=== PATIENT | male | born 1965 | race Caucasian/White ===

== ENCOUNTER 2017-04-03 20:26 | Emergency (ER) | payer BC, MEDICAID ==
[~2017-04-03] VITALS: Ht 177.8 cm; Wt 77.1 kg
--- NOTE | 2017-04-03 21:56 | NUR ---
PT RECEIVED FROM HOME VIA GF WITH MULTIPLE COMPLAINTS INCLUDING ENFLAMED SPIDER BITE, SOB, ANXIETY AND "WOKE UP NEXT TO THE HEATER WHICH IS WEIRD". NO SOB NOTED WITH ADEQUATE CHEST RISE/FALL. NO PAIN AT THIS MOMENT. VSS NAD A/OX4. WILL CONTINUE TO MONITOR FOR ANY CHANGES
--- NOTE | 2017-04-03 22:00 | NUR ---
ER MD HURT AT BEDSIDE FOR EVAL
[2017-04-03] MEDS ORDERED: HYDROCODONE/APAP 5/325MG 1 EACH TABLET ONE (22:22)
[2017-04-03] MEDS ORDERED: CEFTRIAXONE 1 G VIAL ONE (22:22)
[2017-04-03] MEDS ORDERED: LIDOCAINE /MPF 1% VIAL 5 ML VIAL ONE (22:22)
[2017-04-03] MEDS ORDERED: CEFTRIAXONE 1 G VIAL IM ONE (22:30)
[2017-04-03] MEDS ORDERED: HYDROCODONE/APAP 5/325MG 1 EACH TABLET PO ONE (22:30)
[2017-04-03 22:31] VITALS: BP 133/70
== END 2017-04-03 22:32 | disposition home or self-care (01) ==
LOC: ER 20:34
DX: R42 Dizziness and giddiness (principal); Z88.8 Allergy status to other drugs, medicaments and biological substances
CPT/HCPCS: 96372; 99283; A4606; J0696; J3490; Z7610

== ENCOUNTER 2017-06-26 14:15 | Emergency (ER) | payer BC, MEDICAID ==
[~2017-06-26] VITALS: Ht 177.8 cm; Wt 83.9 kg
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
[2017-06-26] MEDS ORDERED: ONDANSETRON HCL/PF 4 MG/2 ML VIAL ONE (14:53)
[2017-06-26] MEDS ORDERED: KETOROLAC TROMETHAMINE INJ 30 MG/ML VIAL ONE (14:53)
[2017-06-26] MEDS ORDERED: FENTANYL PF 100MCG/2ML AMPUL ONE (14:54)
[2017-06-26] MEDS ORDERED: ONDANSETRON HCL/PF 4 MG/2 ML VIAL IVP ONE (15:00)
[2017-06-26] MEDS ORDERED: IV NS 0.9% 500 ML BAG IV ONE (15:00)
[2017-06-26] MEDS ORDERED: KETOROLAC TROMETHAMINE INJ 30 MG/ML VIAL IV ONE (15:00)
[2017-06-26] MEDS ORDERED: FENTANYL PF 100MCG/2ML AMPUL IV ONE ×2 (15:00→15:30)
[2017-06-26 15:15] LABS: APPEARANCE,URINE Clear (CLEAR); BILIRUBIN,URINE Negative (NEGATIVE); BLOOD, URINE Negative Ery/uL (NEGATIVE); COLOR,URINE Yellow (YELLOW); KETONES,URINE Negative (NEGATIVE); LEUKOCYTE ESTERASE ,URINE Negative (NEGATIVE); NITRITE, URINE Negative (NEGATIVE); PH,URINE 6.5 (5.0-8.0); PROTEIN,URINE Negative (NEGATIVE); UGLUCOSE Negative (NEGATIVE); UROBILINOGEN,URINE 0.2 EU/dL (0.2)
--- NOTE | 2017-06-26 16:15 | NUR ---
CALLED PT'S FATHER JESSY AND LEFT A VOICEMAIL. PT STATES HIS FATHER, NAD, WILL BE HIS RIDE BACK HOME. [phone]
--- NOTE | 2017-06-26 16:26 | NUR ---
Patient discharged to home in stable condition. Written and verbal after care instructions given. Patient verbalizes understanding of instruction.IV removed. Catheter intact and site benign. Pressure and 4x4 applied to site. No bleeding noted. VSS. PT wheelchaired outside to waiting room. Pt states "my dad will pick me up from the waiting room."
[2017-06-26 16:27] VITALS: BP 145/92
== END 2017-06-26 16:28 | disposition home or self-care (01) ==
LOC: ER 14:16
DX: M54.41 Lumbago with sciatica, right side (principal); F10.10 Alcohol abuse, uncomplicated; F17.200 Nicotine dependence, unspecified, uncomplicated; Z88.8 Allergy status to other drugs, medicaments and biological substances; V49.49XA Driver injured in collision with other motor vehicles in traffic accident, initial encounter; Y93.89 Activity, other specified; Y92.410 Unspecified street and highway as the place of occurrence of the external cause; Y99.8 Other external cause status
CPT/HCPCS: 72131-TC; 81000-TC; A4606; J1885; J2405; J3010; J7040; Z7610

== ENCOUNTER 2017-07-02 07:58 | Inpatient (IN) | payer MEDICAID ==
[~2017-07-02] VITALS: Ht 177.8 cm; Wt 73.9 kg
[2017-07-02] VITALS (24 sets, daily range): BP systolic 103–166; BP diastolic 63–113
--- NOTE | 2017-07-02 08:08 | NUR ---
Nitza Pittman 19 IVSL POA.
[2017-07-02] MEDS ORDERED: ONDANSETRON HCL/PF 4 MG/2 ML VIAL ONE (08:18)
[2017-07-02 08:28] LABS: BASOPHILS % (AUTO) 0.4 % (0.0-2.0); EOSINOPHILS % (AUTO) 0.3 % (0.0-6.0); HEMATOCRIT 40 % (39-51); HEMOGLOBIN 13.2 g/dL (13.5-17.5); LYMPHOCYTES # (AUTO) 1.2 /CMM (0.8-4.8); LYMPHOCYTES % (AUTO) 9.8 % (20.0-44.0); MEAN CORPUSCULAR HGB CONC 33 g/dl (31.0-36.0); MEAN CORPUSCULAR VOLUME 89 fL (80-96); MONOCYTES # (AUTO) 0.8 /CMM (0.1-1.30); MONOCYTES % (AUTO) 6.7 % (2.0-12.0); NEUTROPHILS # (AUTO) 10.4 /CMM (1.8-8.9); NEUTROPHILS % (AUTO) 82.8 % (43.0-81.0); PLATELET COUNT (AUTO) 357 /CMM (150-450); RDW COEFFICIENT OF VARIATION 14.1 (11.5-15.0); RED BLOOD CELL COUNT(AUTO) 4.47 MIL/uL (4.5-6.0); WHITE BLOOD COUNT (AUTO) 12.6 K/uL (4.3-11.0)
[2017-07-02] MEDS ORDERED: ONDANSETRON HCL/PF 4 MG/2 ML VIAL IVP ONE (08:30)
[2017-07-02] MEDS ORDERED: IV NS 0.9% 1,000 ML BAG IV ONE (08:30)
--- NOTE | 2017-07-02 08:35 | NUR ---
URINE SAMPLE COLLECTED AND SEND TO LAB
[2017-07-02 08:43] LABS: APPEARANCE,URINE CLEAR (CLEAR); BILIRUBIN,URINE NEGATIVE (NEGATIVE); BLOOD, URINE NEGATIVE Ery/uL (NEGATIVE); COLOR,URINE YELLOW (YELLOW); KETONES,URINE TRACE (NEGATIVE); LEUKOCYTE ESTERASE ,URINE NEGATIVE (NEGATIVE); NITRITE, URINE NEGATIVE (NEGATIVE); PROTEIN,URINE NEGATIVE (NEGATIVE); UGLUCOSE NEGATIVE (NEGATIVE); UROBILINOGEN,URINE 0.2 EU/dL (0.2)
[2017-07-02 08:53] LABS: CALCIUM, SERUM 9.5 mg/dL (8.5-10.1); CARBON DIOXIDE 29 mmol/L (21-32); CHLORIDE 99 mmol/L (98-107); GLUCOSE 113 mg/dL (74-106); POTASSIUM 3.6 mmol/L (3.5-5.1); SODIUM SERUM 140 mmol/L (136-145); UREA NITROGEN, BLOOD 12 mg/dL (7-18)
[2017-07-02 08:56] LABS: ALANINE AMINOTRANSFERASE 41 U/L (12-78); ALBUMIN 3.2 g/dL (3.4-5.0); ALCOHOL, BLOOD < 3 mg/dL (0-0); ALKALINE PHOSPHATASE 97 U/L (46-116); ASPARTATE AMINOTRANSFERASE 48 U/L (15-37); BILIRUBIN,TOTAL 0.3 mg/dL (0.2-1.0); TOTAL PROTEIN, SERUM 8.8 g/dL (6.4-8.2)
[2017-07-02 08:59] LABS: SALICYLATE 1.8 mg/dL (2.8-20.0)
[2017-07-02 09:00] LABS: ACETAMINOPHEN 0 ug/ml (10-30)
[2017-07-02 09:08] LABS: BILIRUBIN,DIRECT 0.1 mg/dL (0.0-0.2)
[2017-07-02 09:16] LABS: BACTERIA,URINE Few /HPF (None Seen); RBC,URINE 0-2 /HPF (0-2); SQUAMOUS EPITHELIAL CELL,UR Rare /HPF (None Seen); WBC,URINE 0-2 /HPF (0-3)
--- NOTE | 2017-07-02 09:55 | NUR ---
Patient is resting comfortably in bed with eyes closed. Easily aroused. VSS
--- NOTE | 2017-07-02 10:39 | NUR ---
REPORT GIVEN TO ICU NURSE 260
[2017-07-02] MEDS ORDERED: ZOLPIDEM TARTRATE 5 MG TABLET PO PRN (11:00)
[2017-07-02] MEDS ORDERED: ONDANSETRON HCL/PF 4 MG/2 ML VIAL IVP PRN (11:00)
[2017-07-02] MEDS ORDERED: MAG HYDROX/AL HYDROX/SIMETH 30 ML UDC PO PRN (11:00)
[2017-07-02] MEDS ORDERED: hydrALAZINE HCL IV 20 MG VIAL IV PRN (11:00)
[2017-07-02] MEDS ORDERED: MAGNESIUM HYDROXIDE 30 ML UDC PO PRN (11:00)
[2017-07-02] MEDS ORDERED: Z GUARD REMEDY 2 OZ OINT TP PRN (11:00)
--- NOTE | 2017-07-02 11:11 | NUR ---
INITIAL SPEECH THERAPIST EARLY INTERVENTION NOTE RCVD PT AWAKE AND ALERT TO SELF, UNABLE TO STOP CRYING/SCREAMING, OR FOLLOW COMMANDS AT THIS TIME ST ON TELE. BILATERAL SOFT WRIST RESTRAINTS IN PLACE. TOLERATING O2 VIA NC. KUMARI INSERTED ORDERED. IV SITES C/D/I/PATENT. NO S/O INFILTRATION/PHLEBITIS OBSERVED UPON FLUSHING. IVF STARTED ORDERED. WILL CONTINUE TO MONITOR PT FOR SAFETY AND COMFORT. CALL LIGHT WITHIN REACH. BED IN LOW AND LOCKED POSITION.
[2017-07-02] MEDS: IV NS 0.9% 1,000 ML IV PRN ×2 (11:51→20:01)
[2017-07-02] MEDS: ACETAMINOPHEN 325 MG TABLET PO PRN ×2 (11:53→18:11)
[2017-07-02] MEDS: ENOXAPARIN SODIUM 40 MG/0.4 ML DISP.SYRIN SQ SCH (11:53)
--- NOTE | 2017-07-02 12:12 | NUR ---
INTERNAL MEDICINE DOCTOR NOTE PT APPEARS MORE AWAKE AT THIS TIME. RE-ORIENTED TO PLACE, TIME, SITUATION. PT DENIES THAT HE TRY TO KILL HIMSELF. DR. ANGULO AT BEDSIDE.
[2017-07-02] MEDS ORDERED: LORAZEPAM INJ 2 MG/ML VIAL IV PRN (12:30)
--- NOTE | 2017-07-02 18:53 | NUR ---
MAINTAINER OPERATOR NOTE PT AWAKE AND ALERT, SHOWING NO S/O DISTRESS. VITAL SIGNS STABLE, SR ON TELE. FAMILY AT BEDSIDE. IV SITES C/D/I/PATENT. IVF INFUSING. PT'S CARE WILL BE ENDORSED TO PRESCRIPTION EYEGLASS MAKER RN FOR CONTINUITY OF CARE. CALL LIGHT WITHIN REACH. BED IN LOW AND LOCKED POSITION.
--- NOTE | 2017-07-02 19:30 | NUR ---
DIESEL LOCOMOTIVE CRANE OPERATOR INITIAL NOTES RECEIVED PATIENT IN BED, ASLEEP, EASILY AROUSABLE TO NAME, ALERT AND ORIENTED X3, BUT LETHARGIC AT THIS TIME. FAMILY MEMBERS AT BEDSIDE. BREATHING EVEN AND NONLABORED, DENIES NEED FOR O2, ON STANDBY. SR ON TELEMETRY MONITORING HR 80s AT THIS TIME. IVF INFUSING ON RIGHT WRIST #18G, PATENT AND INTACT, SITE FLUSHED WITH NS. RIGHT AC #16 G ALSO FLUSHED WITH NS, BOTH SITES FREE FROM ANY S/S OF INFILTRATION OR PHLEBITIS. KUMARI CATHETER IN PLACE, DRAINING CLEAR YELLOW URINE VIA GRAVITY. PLAN OF CARE DISCUSSED WITH THE PATIENT AND FAMILY MEMBERS, WHO VERBALIZE UNDERSTANDING AT THIS TIME. CALL LIGHT LEFT WITHIN EASY REACH, BED IN LOWEST AND LOCKED POSITION. SAFETY MEASURES IN PLACE. WILL CONTINUE TO CLOSELY MONITOR
--- NOTE | 2017-07-02 21:00 | NUR ---
RN NOTES PATIENT NOTED TO WAKE UP, DISORIENTED, DEMANDING FOR BREAKFAST. PATIENT REORIENTED TO TIME AND SITUATION. OFFERED SNACK TO THE PATIENT, WHO GLADLY ACCEPTED. WILL CONTINUE TO CLOSELY MONITOR
[2017-07-03] VITALS (15 sets, daily range): BP systolic 119–156; BP diastolic 79–96
[2017-07-03] MEDS: ACETAMINOPHEN 325 MG TABLET PO PRN ×2 (01:11→14:39)
--- NOTE | 2017-07-03 02:00 | NUR ---
TANK TENDER NOTES PATIENT NOTED TO ASK "WHAT DO YOU KNOW ABOUT PHYSICIAN ASSISTED SUICIDE?" BEFORE BEING ABLE TO ANSWER, PATIENT INTERJECTED AND STRONGLY DENIED HAVING SUICIDAL THOUGHTS OR INTENTION TO HARM HIMSELF OR OTHERS, THEN STATING "NEVER MIND." PATIENT WAS ENCOURAGED TO VERBALIZE THOUGHTS AND FEELINGS, BUT REFUSED TO ANSWER, STATING "NEVER MIND, JUST LET ME SLEEP NOW." WILL CONTINUE TO CLOSELY MONITOR
[2017-07-03 05:23] LABS: BASOPHILS % (AUTO) 0.5 % (0.0-2.0); EOSINOPHILS % (AUTO) 1.3 % (0.0-6.0); HEMATOCRIT 34 % (39-51); HEMOGLOBIN 11.6 g/dL (13.5-17.5); LYMPHOCYTES # (AUTO) 1.2 /CMM (0.8-4.8); LYMPHOCYTES % (AUTO) 18.1 % (20.0-44.0); MEAN CORPUSCULAR HGB CONC 34 g/dl (31.0-36.0); MEAN CORPUSCULAR VOLUME 88 fL (80-96); MONOCYTES # (AUTO) 0.5 /CMM (0.1-1.30); MONOCYTES % (AUTO) 7.8 % (2.0-12.0); NEUTROPHILS # (AUTO) 4.7 /CMM (1.8-8.9); NEUTROPHILS % (AUTO) 72.3 % (43.0-81.0); PLATELET COUNT (AUTO) 317 /CMM (150-450); RDW COEFFICIENT OF VARIATION 14.2 (11.5-15.0); WHITE BLOOD COUNT (AUTO) 6.6 K/uL (4.3-11.0)
[2017-07-03 05:48] LABS: CALCIUM, SERUM 8.8 mg/dL (8.5-10.1); CREATININE 0.7 mg/dL (0.6-1.3); MAGNESIUM 1.6 mg/dL (1.8-2.4); PHOSPHORUS 3.9 mg/dL (2.5-4.9); POTASSIUM 3.9 mmol/L (3.5-5.1)
[2017-07-03] MEDS: IV NS 0.9% 1,000 ML IV PRN (06:17)
--- NOTE | 2017-07-03 07:00 | NUR ---
FAUCETS ASSEMBLER CLOSING NOTES PATIENT NOW SLEEPING IN BED, NOTED TO HAVE EPISODES OF UNCOOPERATIVENESS WITH NEEDY BEHAVIOR, ATTEMPTING TO MANIPULATE STAFF THROUGHOUT SHIFT, REQUIRING FREQUENT REORIENTATION TO SITUATION, TIME, AND REALITY. WILL ENDORSE THE PATIENT TO THE AM SHIFT NURSE FOR CONTINUITY OF CARE
[2017-07-03] MEDS ORDERED: PANTOPRAZOLE 40 MG TABLET.DR PO SCH (07:30)
--- NOTE | 2017-07-03 07:53 | NUR ---
INITIAL COMMERCIAL DECORATOR NOTE RCVD PT SLEEPING,EASILY AROUSED TO LIGHT TOUCH. SR ON TELE. ON NC TOLERATING WELL. O2 TURNED OFF WILL CONTINUE TO MONITOR. KUMARI TO GRAVITY DRAINING CLEAR, YELLOW URINE. IV SITES C/D/I/PATENT. NO S/O INFILTRATION/PHLEBITIS OBSERVED IVF INFUSING. WILL CONTINUE TO MONITOR PT FOR SAFETY AND COMFORT. CALL LIGHT WITHIN REACH. BED IN LOW AND LOCKED POSITION.
[2017-07-03] MEDS: ENOXAPARIN SODIUM 40 MG/0.4 ML DISP.SYRIN SQ SCH (08:10)
[2017-07-03] MEDS: Magnesium 1GM/D5W 100ML PREMIX 100 ML IV SCH ×2 (08:17→09:55)
--- NOTE | 2017-07-03 09:11 | NUR ---
DUMPER BULK SYSTEM NOTE PT VERBALIZED THE INTENT OF KILLING HIMSELF THIS AM. LORETA REESE INFORMED. DR. MONTEZ CALLED AND INFORMED. HE RECOMMENDED TO CALL THE CRISIS TEAM. ART FROM THE CRISIS TEAM WAS CALLED AND SAID THAT WILL COME TO ASSESS PT. THIS AM. DR. MONTEZ CALLED A LITTLE WHILE AFTER AND SAID THAT WILL ALSO COME THIS AM TO EXAMINE PT. DR. ANGULO AT BEDSIDE INFORMED OF ACTIONS TAKEN THIS AM AND PT'S STATEMENT OF WANTING TO KILL SELF.
--- NOTE | 2017-07-03 10:14 | NUR ---
PHYSICAL EDUCATION DEPARTMENT CHAIR NOTE ART FROM CRISIS TEAM IN UNIT WAS INFORMED ABOUT PT'S ADMITTING CONDITION AND DIAGNOSIS, PER PT'S FAMILY PT HAD TWIN BROTHER WHO COMMITTED SUICIDE SOME TIME AGO, PT VOICED TO GIRLFRIEND AND FATHER THAT HE WANTED TO KILL HIMSELF PRIOR TO OVERDOSING YESTERDAY. RIGHT AFTER PT SAID THAT HE WANTED TO KILL HIMSELF, HE SAID FORGET WHAT I JUST SAID. WHILE DOING THE SUICIDE RISK ASSESSMENT PT DENIES THAT HE WANTED TO KILL HIMSELF OR THAT HE VERBALIZED THAT INTENT THIS AM.
[2017-07-03] MEDS ORDERED: ELVI1TAB3 PO (10:59)
--- NOTE | 2017-07-03 12:54 | NUR ---
MAINTENANCE MECHANIC ELEVATORS NOTE PT TRANSFERRED TO MED-SURG ROOM 322-1 VITAL SIGNS STABLE, ON RA, PT'S FATHER AT BEDSIDE WHEN PT WAS TRANSPORTED. REHAB RESOURCES THAT ART GAVE PT WERE HANDED TO PT'S FATHER, MELODY. AT THIS TIME PT DENIES THAT HE TOLD ME THAT HE WANTED TO KILL HIMSELF EARLIER TODAY. PER ART FROM CRISIS TEAM PT'S WILLING TO ATTEND REHAB. PT ALSO VERBALIZED HIS INTENT TO ATTEND DRUG REHAB. NO BELONGINGS WERE FOUND UPON PT'S TRANSFER OR DURING ADMISSION YESTERDAY.
--- NOTE | 2017-07-03 13:00 | NUR ---
RN NOTES PATIENT TRANSFERRED FROM ICU 52 Y/OLD MALE ON MED /SURGE. PATIENT A/O X3/4 INFUSING NS AT 100 ML/HR IN RIGHT FOREARM. PATIENT VERY ANXIOUS, IRRITABLE, WAS C/O PAIN LOWER BACK PAIN 10/27. V/S TAKEN BP -124/91, P-97, T-97.8, R-20, O2-96 ROOM AIR. NEEDS ATTENDED AND ANTICIPATED. CALL LIGHT WITHIN TO REACH CONTINUED MONITORING.
--- NOTE | 2017-07-03 14:40 | NUR ---
RN NOTES ADMINISTERED TYLENOL 650 MG PO PRN FOR LOWER BACK PAIN 08/27, MILK OF MAGNESIA FOR CONSTIPATION, AND ATIVAN 1 MG /ML IV PUSH FOR ANXIETY, V/S TAKEN BP 124/91, P-97, CALL LIGHT WITHIN TO REACH , ENCOURAGED TO INCREASE FLUID INTAKE. CONTINUED MONITORING.
--- NOTE | 2017-07-03 15:05 | NUR ---
Social service consult requested by Dr. Guzman for overdose. Pt. is a 52 year old male who was admitted to ICU at [facility] for altered mental status and drug overdose. SW and director case Concepción Tirado met with pt. bedside. Pt. overdosed on Phental, THC and Methamphetamines and states it wasn't intentional. Pt. appears disheveled and has incomprehensible speech at times making it difficult to understand him. Pt. lives with his father. Pt. had a twin brother who committed suicide 8 years ago. Pt. gets tearful when talking about his twin brother. Pt. is upset that his girlfriend Gabriela informed the RN that he is suicidal when he asked her about assisted suicide. He informed SW he is going to a get a caramel coloring operator to kenneth her for making that false statement. Pt. has a history of using THC since age 16. Pt. also uses 1-2 times per week of methamphetamines for the past two years. Pt. used to smoke heroin 20 years ago but does not use currently. Pt. has been to rehab 13 years ago at [facility]. Pt's toxicology report shows positive for Benzos, THC, Amphetamines and Opiates. Pt. denies alcohol abuse. Pt. is denying suicidal and homicidal ideations and visual/auditory hallucinations at this time. Pt. has been seen by Dr. Varghese and cleared by cattle feeder Benitez Thakkar. Patient does not meet 5150 criteria nor inpatient criteria. cold roll packer sheet iron offered him rehab referrals and patient stated he would take them but first try to go one to two months without drugs as he wants to stop, stating these are not good. Patient believes he can quit drugs but if not he will go to rehab at this time. No other social service needs are required at this time. SW is available, if needed.
--- NOTE | 2017-07-03 17:40 | NUR ---
DISCHARGE NOTES PATIENT DISCHARGE AT THIS TIME GOING HOME. MEDICATION WERE ADMINISTERED FOR ANXIETY EFFECTIVE. MED RECONCILIATION AND DISCHARGE NOTES REVIEWED AND EXPLAINED TO. PATIENT VERBALIZED UNDERSTANDING. PATIENT WILL FOLLOW PRIMARY MD. PATIENT SIGN PAPERWORK. PATIENT HAS NO BELONGING. ESCORTED PATIENT TO THE LOBBY FOR SAFETY. PATIENT CATALOGING ASSISTANT BY DAD NAME MELODY PHONE # [phone].
== END 2017-07-03 17:35 | disposition home or self-care (01) | DRG 812 ==
LOC: ER 07:59 → ICU 10:29 → MED 07-03 12:49
PROVIDERS: ADMIT Internal Medicine; ATTEND Internal Medicine
DX: T50.902A Poisoning by unspecified drugs, medicaments and biological substances, intentional self-harm, initial encounter (principal); J96.01 Acute respiratory failure with hypoxia; E43 Unspecified severe protein-calorie malnutrition; G92 Toxic encephalopathy; R45.851 Suicidal ideations; R65.10 Systemic inflammatory response syndrome (SIRS) of non-infectious origin without acute organ dysfunction; Z88.8 Allergy status to other drugs, medicaments and biological substances; Y92.003 Bedroom of unspecified non-institutional (private) residence as the place of occurrence of the external cause; F19.229 Other psychoactive substance dependence with intoxication, unspecified; F19.24 Other psychoactive substance dependence with psychoactive substance-induced mood disorder; F32.9 Major depressive disorder, single episode, unspecified; V89.2XXD Person injured in unspecified motor-vehicle accident, traffic, subsequent encounter; Z81.8 Family history of other mental and behavioral disorders
CPT/HCPCS: 36415; 70450-TC; 71045-TC; 80048-TC; 80076-TC; 80305; 81000-TC; 83735-TC; 84100-TC; 85025-TC; 87081-TC; A4606; G0480; J1650; J2060; J2405; J3475; J7030; Z7610

== ENCOUNTER 2019-10-01 20:20 | Emergency (ER) | payer MEDICAID ==
[~2019-10-01] VITALS: Ht 177.8 cm; Wt 77.1 kg
[~2019-10-01 20:20] MED LIST: ELVI1TAB3 PO
[2019-10-01 20:35] VITALS: BP 141/87
[2019-10-01] MEDS ORDERED: IBUPROFEN 600 MG TABLET PO ONE ×2 (21:21→21:30)
== END 2019-10-01 21:05 | disposition home or self-care (01) ==
LOC: ER 20:22
DX: S91.331A Puncture wound without foreign body, right foot, initial encounter (principal); Z88.8 Allergy status to other drugs, medicaments and biological substances; Z79.899 Other long term (current) drug therapy; X58.XXXA Exposure to other specified factors, initial encounter; Y93.01 Activity, walking, marching and hiking; Y92.89 Other specified places as the place of occurrence of the external cause; Y99.8 Other external cause status
CPT/HCPCS: 73630-TC

== ENCOUNTER 2020-01-12 20:07 | Emergency (ER) | payer MEDICAID ==
[~2020-01-12] VITALS: Ht 177.8 cm; Wt 77.1 kg
[2020-01-12 20:08] VITALS: BP 162/101
[2020-01-12] MEDS ORDERED: PENICILLIN G BENZATHINE 2.4 MMU/4 ML ML IM ONE ×2 (20:30→20:36)
== END 2020-01-12 20:43 | disposition home or self-care (01) ==
LOC: ER 20:07
DX: A53.9 Syphilis, unspecified (principal); Z88.8 Allergy status to other drugs, medicaments and biological substances; Z79.899 Other long term (current) drug therapy
CPT/HCPCS: 96372; 99283; J0558

== ENCOUNTER 2020-01-27 19:58 | Emergency (ER) | payer MEDICAID ==
[~2020-01-27] VITALS: Ht 177.8 cm; Wt 77.1 kg
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
--- NOTE | 2020-01-27 20:28 | NUR ---
RADIOLOGY AT BEDSIDE
[2020-01-27] MEDS ORDERED: ONDANSETRON 4 MG TAB.RAPDIS ONE (21:26)
[2020-01-27] MEDS ORDERED: HYDROCODONE/APAP 10/325MG TABLET ONE (21:26)
[2020-01-27] MEDS ORDERED: ONDANSETRON 4 MG TAB.RAPDIS SL ONE (21:30)
[2020-01-27] MEDS ORDERED: HYDROCODONE/APAP 10/325MG TABLET PO ONE (21:30)
--- NOTE | 2020-01-27 21:31 | NUR ---
Placed in a shoulder sling by EMT.
--- NOTE | 2020-01-27 22:00 | NUR ---
Patient discharged to home in stable condition. Written and verbal after care instructions given. Patient verbalizes understanding of instruction and RX. Pt ambulated with steady gait. vss.
[2020-01-27 22:27] VITALS: BP 131/79
== END 2020-01-27 22:28 | disposition home or self-care (01) ==
LOC: ER 20:01
DX: S42.291A Other displaced fracture of upper end of right humerus, initial encounter for closed fracture (principal); S60.011A Contusion of right thumb without damage to nail, initial encounter; Z90.49 Acquired absence of other specified parts of digestive tract; Z98.890 Other specified postprocedural states; Z88.8 Allergy status to other drugs, medicaments and biological substances; Z79.899 Other long term (current) drug therapy; W01.0XXA Fall on same level from slipping, tripping and stumbling without subsequent striking against object, initial encounter; Y93.89 Activity, other specified; Y92.89 Other specified places as the place of occurrence of the external cause; Y99.8 Other external cause status
CPT/HCPCS: 29105; 73030; 73060; 73130; 99284; Q0162